=== PATIENT | male | born 1965 | race American Indian/Alaskan Native ===

== ENCOUNTER 2022-02-19 12:07 | Emergency (ER) | payer SELFPAY ==
[2022-02-19 12:25] VITALS: BP 158/98
--- NOTE | 2022-02-21 17:48 | Electrocardiograph Report ---
[facility] Test Date: 2022-02-19 Test Time: 12:28:19 Pat Name: GEORGE MCCONNELL Department: Room: Gender: M [employer] Operator: TRACIE : 1965 Requested By: ED DOC Order Number: [id number] Reading MD: Brayan Delvalle Measurements Intervals [place] Rate: 87 P: 62 [place]: 148 QRS: -14 QRSD: 92 T: 47 QT: 346 QTc: 416 Interpretive Statements Sinus rhythm Nonspecific T abnormalities, lateral leads No previous ECG available for comparison Electronically Signed On 02-21-2022 17:47:59 EDT by Brayan Delvalle
== END 2022-02-19 17:06 | disposition left against medical advice (07) ==
LOC: ED 12:07
DX: R07.9 Chest pain, unspecified (principal); Z53.21 Procedure and treatment not carried out due to patient leaving prior to being seen by health care provider
CPT/HCPCS: 93005